=== PATIENT | male | born 1960 | race Two or more races ===

== ENCOUNTER 2019-03-13 08:04 | Emergency (ER) | payer MEDICAID ==
[~2019-03-13] VITALS: Ht 182.9 cm; Wt 114.2 kg
[2019-03-13] MEDS ORDERED: ondansetron 4mg rapidly disintigrating tab PO ONE (08:20)
[2019-03-13] MEDS ORDERED: meclizine 12.5mg tablet PO ONE (08:45)
[2019-03-13] MEDS ORDERED: mag hydrox/Alum hydrox/simeth 30ml oral suspension PO ONE (08:45)
[2019-03-13] MEDS ORDERED: normal saline 1000ml 1,000 ML IV ONE (08:45)
[2019-03-13] MEDS ORDERED: MECL12.584 PO (09:57)
[2019-03-13 10:09] VITALS: BP 124/73
== END 2019-03-13 10:07 | disposition home or self-care (01) ==
LOC: ER 08:05
DX: H81.10 Benign paroxysmal vertigo, unspecified ear (principal); R55 Syncope and collapse; E78.00 Pure hypercholesterolemia, unspecified; K21.9 Gastro-esophageal reflux disease without esophagitis; E11.9 Type 2 diabetes mellitus without complications; Z98.890 Other specified postprocedural states
CPT/HCPCS: 82948; 93005; 96360; 99284; J7030; J8597

== ENCOUNTER 2021-02-15 12:25 | Emergency (ER) | payer MEDICAID ==
[~2021-02-15] VITALS: Ht 185.4 cm; Wt 116.8 kg
[~2021-02-15 12:25] MED LIST: MECL-226 PO
[2021-02-15 12:36] VITALS: BP 104/74
--- NOTE | 2021-02-15 13:18 | NUR ---
PT TO CT VIA WHEELCHAIR WITH RN PATIENT SERVICES.
[2021-02-15] MEDS ORDERED: TETanus/Pertussis (Acell)/Diphther VAC/PF (Tdap-Adult) 0.5ml syringe IMVAC ONE (13:35)
[2021-02-15] MEDS ORDERED: LIDOcaine 1% W/epiNEPHrine 1:200,000 10ml vial IJ ONE (13:35)
== END 2021-02-15 14:30 | disposition home or self-care (01) ==
LOC: ER 12:26
DX: S01.81XA Laceration without foreign body of other part of head, initial encounter (principal); R51.9 Headache, unspecified; E78.00 Pure hypercholesterolemia, unspecified; K21.9 Gastro-esophageal reflux disease without esophagitis; Z20.3 Contact with and (suspected) exposure to rabies; Z98.890 Other specified postprocedural states; Z79.899 Other long term (current) drug therapy; W19.XXXA Unspecified fall, initial encounter; Y93.89 Activity, other specified; Y92.89 Other specified places as the place of occurrence of the external cause; Y99.8 Other external cause status
CPT/HCPCS: 12013; 70450; 72125; 90471; 90715; 99285

== ENCOUNTER 2021-08-13 05:22 | Day surgery (SDC) | payer MEDICAID ==
[2021-08-10 10:30] LABS: BASOPHILS # (AUTO) 0.1 X10'3 (0-0.2); BASOPHILS % (AUTO) 1.1 % (0-1); EOSINOPHILS # (AUTO) 0.2 X10'3 (0-0.9); EOSINOPHILS % (AUTO) 4.5 % (0-6); LYMPHOCYTES # (AUTO) 1.5 X10'3 (1.1-4.8); LYMPHOCYTES % (AUTO) 30.7 % (21-51); MEAN CORPUSCULAR HEMOGLOBIN 32.7 PG (27.0-31.0); MEAN CORPUSCULAR HGB CONC 34.5 g/dL (33.0-36.5); MEAN CORPUSCULAR VOLUME 94.8 FL (78-98); MEAN PLATELET VOLUME 8.7 FL (7.4-10.4); MONOCYTES # (AUTO) 0.5 X10'3 (0-0.9); MONOCYTES % (AUTO) 11.4 % (2-12); NEUTROPHILS # (AUTO) 2.5 X10'3 (1.8-7.7); NEUTROPHILS % (AUTO) 52.3 % (42-75); PRE OP HEMATOCRIT 45.9 % (42.0-52.0); PRE OP HEMOGLOBIN 15.8 g/dL (14.0-17.9); PRE OP PLATELET COUNT 265 X10'3 (140-440); RED BLOOD COUNT 4.85 X10'6 (4.70-6.10); RED CELL DISTRIBUTION WIDTH 13.4 % (11.5-14.5)
[2021-08-10 10:39] LABS: ALBUMIN 3.7 G/DL (3.4-5.0); ALKALINE PHOSPHATASE 80 IU/L (46-116); BLOOD UREA NITROGEN 16 MG/DL (7-18); CALCIUM 8.7 MG/DL (8.5-10.1); CHLORIDE 106 MMOL/L (99-107); CREATININE 0.94 MG/DL (0.60-1.10); PRE OP ALT 37 U/L (30-65); PRE OP ANION GAP 8 (8-16); PRE OP AST 17 U/L (10-37); PRE OP BILIRUB, TOTAL 0.5 MG/DL (0.0-1.0); PRE OP GLUCOSE 125 MG/DL (70-104); PRE OP POTASSIUM 4.2 MMOL/L (3.4-5.1); PRE OP SODIUM 143 MMOL/L (135-145); TOTAL CARBON DIOXIDE 28.6 MMOL/L (24-32); TOTAL PROTEIN 7.5 G/DL (6.4-8.2); eGFR 82 ML/MIN
[~2021-08-13] VITALS: Ht 185.4 cm; Wt 120.9 kg
[2021-08-13] VITALS (7 sets, daily range): BP systolic 111–142; BP diastolic 70–87
[~2021-08-13 05:22] MED LIST changes: +ATOR40TA72 PO; +CIDE300T3 PO; +FEXO-62 PO; +MECL-159 PO; -MECL-226 PO; +METH900C PO; +OMEP-50 PO; +[UNRECOGNIZED DRUG - OTHER] PO; +ringers solution, lacted 1,000 ML IV SCH
[2021-08-13] MEDS ORDERED: VANCOMYCIN INJ 1000 MG in NORMAL SALINE 250ml IV.SOLN IV ONE (05:30)
[2021-08-13] MEDS ORDERED: ceFAZolin 2gm in dextrose, iso 50 ML IV ONE (05:30)
[2021-08-13] MEDS ORDERED: famotidine 20mg tablet PO ONE (05:30)
[2021-08-13] MEDS ORDERED: LIDOcaine 1% (10mg/ml) 2ml vial ONE (06:18)
[2021-08-13] MEDS ORDERED: triamcinolone acetonide 40mg/ml inj ONE (06:43)
[2021-08-13] MEDS ORDERED: BUPIVAcaine/PF 2.5mg/ml (0.25%) 10ml vial ONE (06:44)
[2021-08-13] MEDS ORDERED: sevoflurane 250ml liquid IH ONE (07:15)
[2021-08-13] MEDS ORDERED: fentaNYL/PF 50MCG/1 ML 2ML syringe ONE (07:20)
[2021-08-13] MEDS ORDERED: midazolam 1 mg/ML 2ml injection ONE (07:21)
[2021-08-13] MEDS ORDERED: propofol inj 20 ML IV ONE (07:23)
[2021-08-13] MEDS ORDERED: LIDOcaine 2% (20mg/ml) 5ml vial ONE (07:23)
[2021-08-13] MEDS ORDERED: dexamethasone sod phosphate 4mg/ml inj. ONE (07:31)
[2021-08-13] MEDS ORDERED: ondansetron/PF 4mg/2ml inj ONE (07:31)
[2021-08-13] MEDS ORDERED: meperidine/PF 25mg/ml syringe ONE (07:35)
[2021-08-13] MEDS ORDERED: proCHLORperazine 10 MG/2 ml inj IV PRN (07:50)
[2021-08-13] MEDS ORDERED: morphine 2 MG/ML inj. syringe IV PRN (07:50)
[2021-08-13] MEDS ORDERED: ringers solution, lacted 1,000 ML IV SCH (07:50)
[2021-08-13] MEDS ORDERED: ondansetron/PF 4mg/2ml inj IV PRN (07:50)
[2021-08-13] MEDS ORDERED: meperidine/PF 25mg/ml syringe IV PRN ×3 (07:50)
[2021-08-13] MEDS ORDERED: morphine 4 MG/ML inj SYRINge IV PRN (07:50)
--- NOTE | 2021-08-13 08:28 | NUR ---
Received from OR via BOB , accompanied by Anesthesiologist GIOVANA and report given by Anesthesiolgist. PATIENT WITH 20G PIV IN RIGHT UE RUNNING LR AT 100. PATIENT WITH BIAS WRAP PRESENT WITH + DORSALIS PEDIS PRESENT. PATIENT WITH 10L MASK ON WITH 99% SATURATIONS. Addendum: 08/13/21 at 0842 by Abram Aden RN, RN Amended: Links added.
== END 2021-08-13 09:28 | disposition home or self-care (01) ==
LOC: PAS 05:22
PROVIDERS: ATTEND Orthopaedic Surgery
DX: S83.231A Complex tear of medial meniscus, current injury, right knee, initial encounter (principal); S83.271A Complex tear of lateral meniscus, current injury, right knee, initial encounter; M94.261 Chondromalacia, right knee; K21.9 Gastro-esophageal reflux disease without esophagitis; E78.5 Hyperlipidemia, unspecified; E66.01 Morbid (severe) obesity due to excess calories; Z68.36 Body mass index [BMI] 36.0-36.9, adult; M17.0 Bilateral primary osteoarthritis of knee; Z72.89 Other problems related to lifestyle; Z79.899 Other long term (current) drug therapy; Z98.890 Other specified postprocedural states; Z90.12 Acquired absence of left breast and nipple; Z87.891 Personal history of nicotine dependence; Z85.3 Personal history of malignant neoplasm of breast; Z88.5 Allergy status to narcotic agent; Z20.822 Contact with and (suspected) exposure to COVID-19; X58.XXXA Exposure to other specified factors, initial encounter; Y93.89 Activity, other specified; Y92.89 Other specified places as the place of occurrence of the external cause; Y99.8 Other external cause status
CPT/HCPCS: 29873; 29879; 29880; 36415; 80053; 82948; 85025; 93005; J1100; J2001; J2175; J2250; J2405; J2704; J3010; J3301; J3370; J3490; U0003; U0005; Z7506; Z7508; Z7512; A4215; A4618; A6250; A6449; A7000; J7120

== ENCOUNTER 2021-12-24 05:36 | Day surgery (SDC) | payer MEDICAID ==
[2021-12-18 11:55] LABS: BASOPHILS % (AUTO) 0.6 % (0-1); EOSINOPHILS # (AUTO) 0.1 X10'3 (0-0.9); EOSINOPHILS % (AUTO) 2.5 % (0-6); LYMPHOCYTES # (AUTO) 1.7 X10'3 (1.1-4.8); LYMPHOCYTES % (AUTO) 31.3 % (21-51); MEAN CORPUSCULAR HEMOGLOBIN 31.8 PG (27.0-31.0); MEAN CORPUSCULAR HGB CONC 34.1 g/dL (33.0-36.5); MEAN CORPUSCULAR VOLUME 93.3 FL (78-98); MEAN PLATELET VOLUME 8.6 FL (7.4-10.4); MONOCYTES # (AUTO) 0.9 X10'3 (0-0.9); NEUTROPHILS # (AUTO) 2.7 X10'3 (1.8-7.7); NEUTROPHILS % (AUTO) 49.6 % (42-75); PRE OP HEMATOCRIT 46.9 % (42.0-52.0); PRE OP PLATELET COUNT 239 X10'3 (140-440); RED BLOOD COUNT 5.03 X10'6 (4.70-6.10); RED CELL DISTRIBUTION WIDTH 13.5 % (11.5-14.5)
[2021-12-18 12:08] LABS: ALBUMIN/GLOBULIN RATIO 1.3 (1.1-1.5); ALKALINE PHOSPHATASE 76 IU/L (46-116); BLOOD UREA NITROGEN 13 MG/DL (7-18); BUN/CREATININE RATIO 14.9 (5.4-32.0); CALCIUM 8.7 MG/DL (8.5-10.1); CHLORIDE 104 MMOL/L (99-107); CREATININE 0.87 MG/DL (0.60-1.10); PRE OP ALT 46 U/L (30-65); PRE OP ANION GAP 10 (8-16); PRE OP AST 22 U/L (10-37); PRE OP BILIRUB, TOTAL 0.7 MG/DL (0.0-1.0); PRE OP GLUCOSE 97 MG/DL (70-104); PRE OP POTASSIUM 4.4 MMOL/L (3.4-5.1); PRE OP SODIUM 141 MMOL/L (135-145); TOTAL CARBON DIOXIDE 26.8 MMOL/L (24-32); TOTAL PROTEIN 7.2 G/DL (6.4-8.2); eGFR 89 ML/MIN
[2021-12-18 12:44] LABS: PLATELET ESTIMATE NORMAL; TOTAL CELLS COUNTED 100
[2021-12-24] VITALS (10 sets, daily range): BP systolic 111–147; BP diastolic 70–90
[~2021-12-24] VITALS: Ht 185.4 cm; Wt 119.6 kg
[~2021-12-24 05:36] MED LIST changes: -FEXO-62 PO; +OMEG-133 PO; -OMEP-50 PO; +OMEP20CA16 PO; +VANCOMYCIN 1,500MG inj. 1,500 MG in dextrose 5% water 500ml 300 ML IV ONE; +cefazolin/dext.iso 2gm/50ml IV ONE; +famotidine 20mg tablet PO ONE
[2021-12-24] MEDS ORDERED: BUPIVAcaine 0.5% inj/PF 30 ML ONE ×2 (06:41→08:32)
[2021-12-24] MEDS ORDERED: ketorolac trometh. 30mg/ml inj. ONE (06:42)
[2021-12-24] MEDS ORDERED: midazolam 1 mg/ML 2ml injection ONE (07:30)
[2021-12-24] MEDS ORDERED: propofol inj 20 ML IV ONE (07:31)
[2021-12-24] MEDS ORDERED: fentaNYL /PF 50mcg/ml 5ml ampule ONE (07:31)
[2021-12-24] MEDS ORDERED: triamcinolone acetonide 40mg/ml inj ONE (08:31)
[2021-12-24] MEDS ORDERED: ondansetron/PF 4mg/2ml inj IV PRN (08:35)
[2021-12-24] MEDS ORDERED: proCHLORperazine 10 MG/2 ml inj IV PRN (08:35)
[2021-12-24] MEDS ORDERED: morphine 2 MG/ML inj. syringe IV PRN (08:35)
[2021-12-24] MEDS ORDERED: morphine 4 MG/ML inj SYRINge IV PRN (08:35)
[2021-12-24] MEDS ORDERED: meperidine/PF 25mg/ml syringe IV PRN ×3 (08:35)
[2021-12-24] MEDS ORDERED: ringers solution, lacted 1,000 ML IV SCH (08:35)
--- NOTE | 2021-12-24 09:00 | NUR ---
Received from OR via BOB , accompanied by Anesthesiologist DR PARKER and report given by Anesthesiolgist. PT PRESENTS WITH PIV 20G LEFT WRIST, LEFT KNEE DRESSING CLEAN DRY AND INTACT, VSS. Addendum: 12/24/21 at 0906 by Kaylee Aden RN, RN Amended: Links added.
[2021-12-24] MEDS ORDERED: HYDROcodone/acetaminophen 10/325mg tab PO ONE (09:40)
--- NOTE | 2021-12-24 10:06 | NUR ---
PATIENT DISCHARGED FROM THE PACU IN STABLE CONDITION AFTER WRITTEN AND VERBAL DISCHARGE INSTRUCTIONS GIVEN. PATIENT GAVE VERBAL UNDERSTANDING OF INSTRUCTIONS GIVEN. PATIENT LEFT FACILITY VIA WHEELCHAIR WITH RN. Addendum: 12/24/21 at 1008 by Kaylee Aden RN, RN Amended: Links added.
== END 2021-12-24 10:06 | disposition home or self-care (01) ==
LOC: PAS 05:36
PROVIDERS: ATTEND Orthopaedic Surgery
DX: S83.242A Other tear of medial meniscus, current injury, left knee, initial encounter (principal); S83.272A Complex tear of lateral meniscus, current injury, left knee, initial encounter; M94.262 Chondromalacia, left knee; M17.12 Unilateral primary osteoarthritis, left knee; E66.01 Morbid (severe) obesity due to excess calories; Z68.34 Body mass index [BMI] 34.0-34.9, adult; E78.5 Hyperlipidemia, unspecified; Z88.5 Allergy status to narcotic agent; Z79.899 Other long term (current) drug therapy; Z98.890 Other specified postprocedural states; Z72.89 Other problems related to lifestyle; Z90.12 Acquired absence of left breast and nipple; Z85.3 Personal history of malignant neoplasm of breast; Z20.822 Contact with and (suspected) exposure to COVID-19; X58.XXXA Exposure to other specified factors, initial encounter; Y92.89 Other specified places as the place of occurrence of the external cause; Y93.89 Activity, other specified; Y99.8 Other external cause status
CPT/HCPCS: 29873; 29879; 29880; 36415; 80053; 82948; 85025; J1885; J2250; J2704; J3010; J3301; J3370; J7060; J7120; S0020; U0003; U0005; Z7506; Z7508; Z7512; 85007; A4215; A4618; A6250; A6449; A7000; J7040